=== PATIENT | female | born 1930 | race Caucasian/White ===

== ENCOUNTER 2016-04-24 14:41 | Observation (INO) | payer MEDICARE, OTHER ==
[~2016-04-24] VITALS: Ht 157.5 cm; Wt 32.7 kg
[2016-04-24] VITALS (10 sets, daily range): BP systolic 137–199; BP diastolic 69–120; PULSE 90–112; RESP 15–28; TEMP 97.5–98; O2SAT 92–99
[~2016-04-24 14:41] MED LIST: AMLO5TAB2 PO; BRIM0.2S4 EACH EYE; DORZ2SOL RIGHT EYE; LEVO50TA4 PO; MUCI600T PO; PRED20 PO; VENTAER INH; ZITH250T PO; [UNRECOGNIZED DRUG - CODE] TOPICAL
--- NOTE | 2016-04-24 14:49 | PD ---
HPI Chief Complaint: Respiratory Symptoms Time Seen by Provider: 14:49 Travel History International Travel<30 days: No Contact w/Intl Traveler<30days: No Traveled to known affect area: No History of Present Illness HPI 85-year-old female with long history of COPD presents the emergency department with increasing shortness of breath and wheezing and productive cough. Patient states she was making up appointment with Dr. Lu, but was referred to the emergency Department, as she had a spontaneous drainage from her left lower extremity. Patient states she's not sure why she started having serous drainage from the left lower leg from a small 3 mm lesion in the skin. Patient denies fever, chills, or chest pain. Patient is been using her nebulizer at home more frequently due to her shortness of breath and cough. Patient has a history of becoming hypoxic with her COPD, was recently hospitalized with pneumonia for same. She currently denies taking prednisone for her lung disease. Patient denies cardiac history or CHF. Patient has no nausea, vomiting, or other constitutional symptoms. PFSH Past Medical History Cancer: No Cardiovascular Problems: Yes High Cholesterol: Yes COPD: Yes Genitourinary: No Hypertension: Yes Immune Disorder: No Musculoskeletal: Yes Neurologic: No Psychiatric: No Reproductive: No Respiratory: Yes Thyroid Disease: Yes ?: Not Past Surgical History Body Medical Devices: VERTOGO Gynecologic Surgery: Yes (ovarian cyst removed when she was in her 20s) Tonsillectomy: Yes Other Surgery: Yes Social History Alcohol Use: No Tobacco Use: No Substance Use: No Allergies-Medications (Allergen,Severity, Reaction): Coded Allergies: Penicillin (Verified Allergy, Mild, HIVES, 03/24/16) Sulfa (Verified Allergy, Mild, HIVES, 03/24/16) Reported Meds & Prescriptions Reported Meds & Active Scripts Active Prednisone 20 Mg Tab 20 Mg PO DIRECTED 40 MG twice a day x 3 days, then 20 MG daily x 3 days, then 10 MG daily x 3 days Mucinex ER 12 HR (Guaifenesin) 600 Mg Bo 1,200 Mg PO BID Zithromax (Azithromycin) 250 Mg Tab 500 Mg PO Q24H Reported Dorzolamide Opth Drops (Dorzolamide HCl) 2% Soln 1 Drop RIGHT EYE BID Brimonidine Opth Drops (Brimonidine Tartrate) 0.2% Soln 1 Drop EACH EYE TID Desoximetasone Topical (Desoximetasone) 0.05% Oint 1 Applic TOPICAL BID Levothyroxine (Levothyroxine Sodium) 50 Mcg Tab 50 Mcg PO DAILY Amlodipine (Amlodipine Besylate) 5 Mg Tab 5 Mg PO DAILY Ventolin Hfa 18 GM Inh (Albuterol Sulfate) 90 Mcg/Act Aer 2 Puff INH Q4H PRN Review of Systems Except as stated in HPI: all other systems reviewed are Neg General / Constitutional: No: Fever, Chills Eyes: No: Visual changes HENT: No: Headaches Cardiovascular: No: Chest Pain or Discomfort Respiratory: Positive: Cough, Shortness of Breath, Wheezing, No: Sneezing, Orthopnea, Hemoptysis, Stridor, Night Sweats, Pleuritic Pain Gastrointestinal: No: Nausea, Vomiting, Diarrhea, Abdominal Pain Genitourinary: No: Dysuria Musculoskeletal: No: Pain Skin: Positive Lesions (see history present illness.), No Rash Neurologic: No: Weakness Psychiatric: No: Depression Endocrine: No: Polydipsia Hematologic/Lymphatic: No: Easy Bruising Physical Exam Narrative GENERAL: Patient is in moderate respiratory distress, but able to speak in short sentences. SKIN: Warm and dry. Normal color. Somewhat poor turgor. Patient has a spot on the left medial lower denis with small opening of the superficial layers of the skin with serous drainage from chronic lower extremity edema. There is no blood or signs of infection. HEAD: Atraumatic. Normocephalic. EYES: Pupils equal and round. No scleral icterus. No injection or drainage. ENT: No nasal bleeding or discharge. Mucous membranes pink and somewhat dry. Pharynx is normal. TMs are clear. Sinuses are clear. Airway is patent. NECK: Trachea midline. No JVD. Supple and nontender CARDIOVASCULAR: Regular rate and rhythm. RESPIRATORY: No accessory muscle use. Decreased throughout to auscultation. Generalized rhonchi with cough. Breath sounds equal bilaterally. No egophony or fremitus. GASTROINTESTINAL: Abdomen soft, non-tender, nondistended. Hepatic and splenic margins not palpable. MUSCULOSKELETAL: Extremities without clubbing, cyanosis, or bilateral 1+ pitting edema. No obvious deformities. NEUROLOGICAL: Awake and alert. No obvious cranial nerve deficits. Motor grossly within normal limits. Five out of 5 muscle strength in the arms and legs. Normal speech. PSYCHIATRIC: Appropriate mood and affect; insight and judgment normal. Data Data Last Documented VS Vital Signs Date Time Temp Pulse Resp B/P Pulse Ox O2 Delivery O2 Flow Rate FiO2 04/24/16 17:00 111 24 94 Nasal Cannula 2 04/24/16 14:59 97.5 Orders Complete Blood Count With Diff (04/24/16 15:03) Comprehensive Metabolic Panel (04/24/16 15:03) B-Type Natriuretic Peptide (04/24/16 15:03) Act Partial Throm Time (Ptt) (04/24/16 15:03) Prothrombin Time / Inr (Pt) (04/24/16 15:03) Magnesium (Mg) (04/24/16 15:03) Ckmb (Isoenzyme) Profile (04/24/16 15:03) Troponin I (04/24/16 15:03) Iv Access Insert/Monitor (04/24/16 15:03) Electrocardiogram (04/24/16 15:03) Ecg Monitoring (04/24/16 15:03) Oximetry (04/24/16 15:03) Oxygen Administration (04/24/16 15:03) Chest, Single Ap (04/24/16 15:03) Sodium Chloride 0.9% Flush (Ns Flush) (04/24/16 15:15) Methylprednisolone So Succ Inj (Solumedr (04/24/16 15:15) Albuterol-Ipratropium Neb (Duoneb Neb) (04/24/16 15:15) Arterial Blood Gas (Abg) (04/24/16 ) Azithromycin Inj (Zithromax Inj) (04/24/16 17:15) Labs Laboratory Tests Test 04/24/16 04/24/16 15:10 16:10 White Blood Count 8.2 TH/MM3 Red Blood Count 5.02 MIL/MM3 Hemoglobin 14.0 GM/DL Hematocrit 42.0 % Mean Corpuscular Volume 83.6 FL Mean Corpuscular Hemoglobin 27.9 PG Mean Corpuscular Hemoglobin 33.3 % Concent Red Cell Distribution Width 15.9 % Platelet Count 337 TH/MM3 Mean Platelet Volume 8.1 FL Neutrophils (%) (Auto) 69.5 % Lymphocytes (%) (Auto) 15.0 % Monocytes (%) (Auto) 13.2 % Eosinophils (%) (Auto) 1.7 % Basophils (%) (Auto) 0.6 % Neutrophils # (Auto) 5.7 TH/MM3 Lymphocytes # (Auto) 1.2 TH/MM3 Monocytes # (Auto) 1.1 TH/MM3 Eosinophils # (Auto) 0.1 TH/MM3 Basophils # (Auto) 0.0 TH/MM3 CBC Comment DIFF FINAL Differential Comment Prothrombin Time 10.0 SEC Prothromb Time International 0.9 RATIO Ratio Activated Partial 26.5 SEC Thromboplast Time Sodium Level 142 MEQ/L Potassium Level 3.4 MEQ/L Chloride Level 106 MEQ/L Carbon Dioxide Level 27.7 MEQ/L Anion Gap 8 MEQ/L Blood Urea Nitrogen 12 MG/DL Creatinine 0.77 MG/DL Estimat Glomerular Filtration 71 ML/MIN Rate Random Glucose 75 MG/DL Calcium Level 9.0 MG/DL Magnesium Level 1.9 MG/DL Total Bilirubin 0.3 MG/DL Aspartate Amino Transf 29 U/L (AST/SGOT) Alanine Aminotransferase 26 U/L (ALT/SGPT) Alkaline Phosphatase 97 U/L Total Creatine Kinase 69 U/L Troponin I 0.02 NG/ML B-Type Natriuretic Peptide 211 PG/ML Total Protein 6.9 GM/DL Albumin 3.3 GM/DL Blood Gas Puncture Site RT RADIAL Blood Gas Patient Temperature 98.6 Blood Gas HCO3 24 mmol/L Blood Gas Base Excess 0.1 mmol/L Blood Gas Oxygen Saturation 95 % Arterial Blood pH 7.42 Arterial Blood Partial 38 mmHg Pressure CO2 Arterial Blood Partial 120 mmHG Pressure O2 Arterial Blood Oxygen Content 17.8 Vol % Arterial Blood 1.5 % Carboxyhemoglobin Arterial Blood Methemoglobin 1.7 % Blood Gas Hemoglobin 13.2 G/DL Oxygen Delivery Device NASAL CANNULA Blood Gas Liter Flow 2 L/M [facility] Medical Decision Making Medical Screen Exam Complete: Yes Emergency Medical Condition: Yes Differential Diagnosis Shortness of breath. Chest congestion. COPD. CHF. Pedal edema. Spontaneous serous drainage from the left lower extremity. Narrative Course Patient is felt to be medically stable at time of exam. Labs ordered including CBC, CMP, proBNP, cardiac panel. Chest x-ray is ordered. Patient is given 125 mg Solu-Medrol IV as well as a DuoNeb 3 every 15 minutes. Chest x-ray shows no acute process per radiologist. CBC is unremarkable. Blood gas is within normal limits. This is reviewed with Dr. Jimenez. EKG shows sinus rhythm without significant ST-T changes. This is reviewed with Dr. Jimenez as well. Patient's CMP shows a slightly low potassium at 3.4. BUN/creatinine were normal. Troponin was 0.02. BNP was slightly elevated at 211. And albumin was 3.3. After the above Treatment the patient was ambulated, and was able to walk approximately 10 feet before becoming extremely winded, and her O2 sat dropped to the high 80s. Patient was discussed with Dr. Jimenez who felt the patient should be admitted. 1710 hrs. delusion hospitalist was called for admission. [address] patient discussed with Dr. Ramos who will admit the patient. Diagnosis Primary Impression: Hypoxia Additional Impression: COPD exacerbation Admitting Information Admitting Physician Requests: Admit Condition: Stable Cirilo Green Apr 24, 2016 14:49
[2016-04-24] MEDS ORDERED: methylPREDNISolone SOD SUCC 125 MG/2 ML VIAL IVP ONE (15:15)
[2016-04-24] MEDS ORDERED: SODIUM CHLORIDE 0.9% FLUSH 5 ML FLUSH IVF PRN (15:15)
--- NOTE | 2016-04-24 15:26 | RADRPT ---
EXAM DATE/TIME: 04/24/2016 15:17 [place] COMPARISON: CHEST SINGLE AP, March 20, 2016, 6:12. INDICATIONS : SOB MEDICAL HISTORY : Hypertension. Chronic obstructive pulmonary disease. Emphysema. SURGICAL HISTORY : None. ENCOUNTER: Initial ACUITY: 1 week PAIN SCORE: 0/10 LOCATION: chest FINDINGS: A single view of the chest demonstrates the lungs to be symmetrically aerated without evidence of mas s, infiltrate or effusion. The cardiomediastinal contours are unremarkable. Osseous structures are intact scoliosis of the thoracic spine to the right.. CONCLUSION: No acute disease. Power Serrano MD on April 24, 2016 at 15:24 Board Certified Radiologist. This report was verified electronically.
[2016-04-24] MEDS: RESP: ALBUTEROL 2.5 MG/IPRATROPIUM 0.5 MG NEB (SCH) INH (15:57)
[2016-04-24 16:04] LABS: AUTOMATED NEUTROPHIL # 5.7 TH/MM3 (1.8-7.7); BASOPHIL % 0.6 % (0.0-2.0); EOSINOPHIL # 0.1 TH/MM3 (0-0.4); EOSINOPHIL % 1.7 % (0.0-4.0); HEMO FLAGS DIFF FINAL; LYMPHOCYTE # 1.2 TH/MM3 (1.0-4.8); MEAN CELL VOLUME 83.6 FL (80.0-100.0); MEAN CORPUSCULAR HEMOGLOBIN 27.9 PG (27.0-34.0); MEAN CORPUSCULAR HGB CONC 33.3 % (32.0-36.0); MONO % 13.2 % (0.0-8.0); NEUT % 69.5 % (16.0-70.0); PLATELET COUNT 337 TH/MM3 (150-450); RED BLOOD COUNT 5.02 MIL/MM3 (4.00-5.30); RED CELL DISTRIBUTION WIDTH 15.9 % (11.6-17.2); WHITE BLOOD COUNT 8.2 TH/MM3 (4.0-11.0)
[2016-04-24 16:17] LABS: APTT (PATIENT) 26.5 SEC (24.3-30.1); INTERNATIONAL NORMALIZED RATIO 0.9 RATIO
[2016-04-24 16:25] LABS: BLOOD GAS BASE EXCESS 0.1 mmol/L (-2-2); BLOOD GAS CARBOXYHEMOGLOBIN 1.5 % (0-4); BLOOD GAS HCO3 24 mmol/L (22-26); BLOOD GAS METHEMOGLOBIN 1.7 % (0-2); BLOOD GAS O2 HGB SATURATION 95 % (90-100); BLOOD GAS OXYGEN CONTENT 17.8 Vol % (12.0-20.0); BLOOD GAS PCO2 38 mmHg (38-42); BLOOD GAS PO2 120 mmHG (61-120); BLOOD GAS TOTAL HGB 13.2 G/DL (12.0-16.0); CRITICAL VALUE NO; DRAW SITE RT RADIAL; LITER FLOW 2 L/M; OXYGEN DEVICE NASAL CANNULA; TEMP CORR TO 98.6
[2016-04-24 16:28] LABS: NUMBER OF ARTERIAL PUNCTURES 2; STAT YES; ULNAR PULSE PRESENT
[2016-04-24 16:31] LABS: ANION GAP 8 MEQ/L (5-15); AST (GOT) 29 U/L (15-37); BICARBONATE 27.7 MEQ/L (21.0-32.0); BLOOD UREA NITROGEN 12 MG/DL (7-18); CHLORIDE 106 MEQ/L (98-107); GLOMERULAR FILTRATION RATE 71 ML/MIN (>89); MAGNESIUM 1.9 MG/DL (1.5-2.5); POTASSIUM 3.4 MEQ/L (3.5-5.1); SODIUM (NA) 142 MEQ/L (136-145)
[2016-04-24 16:36] LABS: ALKALINE PHOSPHATASE 97 U/L (45-117); ALT (GPT) 26 U/L (10-53); CREATINE KINASE 69 U/L (26-192); TOTAL BILIRUBIN ADULT 0.3 MG/DL (0.2-1.0)
--- NOTE | 2016-04-24 17:11 | PD ---
Data Data Last Documented VS Vital Signs Date Time Temp Pulse Resp B/P Pulse Ox O2 Delivery O2 Flow Rate FiO2 04/24/16 15:10 98 Nasal Cannula 2 04/24/16 14:59 97.5 112 28 170/120 Orders Complete Blood Count With Diff (04/24/16 15:03) Comprehensive Metabolic Panel (04/24/16 15:03) B-Type Natriuretic Peptide (04/24/16 15:03) Act Partial Throm Time (Ptt) (04/24/16 15:03) Prothrombin Time / Inr (Pt) (04/24/16 15:03) Magnesium (Mg) (04/24/16 15:03) Ckmb (Isoenzyme) Profile (04/24/16 15:03) Troponin I (04/24/16 15:03) Iv Access Insert/Monitor (04/24/16 15:03) Electrocardiogram (04/24/16 15:03) Ecg Monitoring (04/24/16 15:03) Oximetry (04/24/16 15:03) Oxygen Administration (04/24/16 15:03) Chest, Single Ap (04/24/16 15:03) Sodium Chloride 0.9% Flush (Ns Flush) (04/24/16 15:15) Methylprednisolone So Succ Inj (Solumedr (04/24/16 15:15) Albuterol-Ipratropium Neb (Duoneb Neb) (04/24/16 15:15) Arterial Blood Gas (Abg) (04/24/16 ) Labs Laboratory Tests Test 04/24/16 04/24/16 15:10 16:10 White Blood Count 8.2 TH/MM3 Red Blood Count 5.02 MIL/MM3 Hemoglobin 14.0 GM/DL Hematocrit 42.0 % Mean Corpuscular Volume 83.6 FL Mean Corpuscular Hemoglobin 27.9 PG Mean Corpuscular Hemoglobin 33.3 % Concent Red Cell Distribution Width 15.9 % Platelet Count 337 TH/MM3 Mean Platelet Volume 8.1 FL Neutrophils (%) (Auto) 69.5 % Lymphocytes (%) (Auto) 15.0 % Monocytes (%) (Auto) 13.2 % Eosinophils (%) (Auto) 1.7 % Basophils (%) (Auto) 0.6 % Neutrophils # (Auto) 5.7 TH/MM3 Lymphocytes # (Auto) 1.2 TH/MM3 Monocytes # (Auto) 1.1 TH/MM3 Eosinophils # (Auto) 0.1 TH/MM3 Basophils # (Auto) 0.0 TH/MM3 CBC Comment DIFF FINAL Differential Comment Prothrombin Time 10.0 SEC Prothromb Time International 0.9 RATIO Ratio Activated Partial 26.5 SEC Thromboplast Time Sodium Level 142 MEQ/L Potassium Level 3.4 MEQ/L Chloride Level 106 MEQ/L Carbon Dioxide Level 27.7 MEQ/L Anion Gap 8 MEQ/L Blood Urea Nitrogen 12 MG/DL Creatinine 0.77 MG/DL Estimat Glomerular Filtration 71 ML/MIN Rate Random Glucose 75 MG/DL Calcium Level 9.0 MG/DL Magnesium Level 1.9 MG/DL Total Bilirubin 0.3 MG/DL Aspartate Amino Transf 29 U/L (AST/SGOT) Alanine Aminotransferase 26 U/L (ALT/SGPT) Alkaline Phosphatase 97 U/L Total Creatine Kinase 69 U/L Troponin I 0.02 NG/ML B-Type Natriuretic Peptide 211 PG/ML Total Protein 6.9 GM/DL Albumin 3.3 GM/DL Blood Gas Puncture Site RT RADIAL Blood Gas Patient Temperature 98.6 Blood Gas HCO3 24 mmol/L Blood Gas Base Excess 0.1 mmol/L Blood Gas Oxygen Saturation 95 % Arterial Blood pH 7.42 Arterial Blood Partial 38 mmHg Pressure CO2 Arterial Blood Partial 120 mmHG Pressure O2 Arterial Blood Oxygen Content 17.8 Vol % Arterial Blood 1.5 % Carboxyhemoglobin Arterial Blood Methemoglobin 1.7 % Blood Gas Hemoglobin 13.2 G/DL Oxygen Delivery Device NASAL CANNULA Blood Gas Liter Flow 2 L/M MDM Supervised Visit with ELIZA: Yes Narrative Course I, Dr. Del Rosario, have reviewed the advance practice practioner's documentation and am in agreement, met with the patient face to face, made the diagnosis, and the medical decision making was done by me. *My assessment and Findings: 85-year-old female with history of COPD here with increasing shortness of breath, dyspnea on exertion, wheezing and productive cough after recent hospital discharge. 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 She denies any fevers or chills. Diffuse wheezing, prolonged expiratory phase with poor air movement on exam. Differential includes COPD exacerbation, chronic hypercapnia/hypoxic respiratory failure, pneumonia. On exam. He improved after nebs, chest x-ray shows chronic changes and labs are unremarkable. Patient however he saturates into the 88-89% upon ambulation requiring admission for oxygen and further management. Diagnosis Primary Impression: Hypoxia Additional Impression: COPD exacerbation Admitting Information Admitting Physician Requests: Admit Condition: Stable Maryuri Del Rosario MD Apr 24, 2016 17:11
[2016-04-24] MEDS ORDERED: AZITHROMYCIN INJ 500 MG in SODIUM CHLOR 0.9% 250 ML INJ 250 ML IV ONE (17:15)
[2016-04-24] MEDS ORDERED: ENOXAPARIN SODIUM 40 MG/0.4 ML SYRINGE SQ SCH (20:00)
[2016-04-24] MEDS: guaiFENesin E.R. 600 MG TAB PO SCH (22:04)
[2016-04-24] MEDS: DORZOLAMIDE 2% OPTH SOLN 200 DROP/10 ML BTLO RIGHT EYE SCH (22:04)
[2016-04-24] MEDS: methylPREDNISolone SOD SUCC 125 MG/2 ML VIAL IV PUSH SCH (22:05)
[2016-04-24] MEDS: RESP: ALBUTEROL 2.5 MG/IPRATROPIUM 0.5 MG NEB (SCH) NEB (23:54)
[2016-04-25] VITALS (10 sets, daily range): BP systolic 106–169; BP diastolic 53–78; PULSE 60–99; RESP 18–20; TEMP 97–98.4; O2SAT 93–98
[2016-04-25] MEDS: LEVOTHYROXINE SODIUM 50 MCG TAB PO SCH (04:59)
[2016-04-25] MEDS: methylPREDNISolone SOD SUCC 125 MG/2 ML VIAL IV PUSH SCH ×2 (04:59→22:01)
[2016-04-25] MEDS: RESP: ALBUTEROL 2.5 MG/IPRATROPIUM 0.5 MG NEB (SCH) NEB ×4 (07:53→20:36)
[2016-04-25] MEDS: FAMOTIDINE 20 MG TAB PO SCH (08:45)
[2016-04-25] MEDS: guaiFENesin E.R. 600 MG TAB PO SCH ×2 (08:45→21:00)
[2016-04-25] MEDS: amLODIPine BESYLATE 5 MG TAB PO SCH (08:45)
[2016-04-25] MEDS: DORZOLAMIDE 2% OPTH SOLN 200 DROP/10 ML BTLO RIGHT EYE SCH ×2 (08:46→21:00)
[2016-04-25] MEDS: BRIMONIDINE TARTRATE 0.2% OPHT SOLN 5 ML BTL EACH EYE SCH ×3 (09:18→17:10)
--- NOTE | 2016-04-25 12:28 | EKG ---
Date Performed: 04/24/2016 Time Performed: 15:31:37 PTAGE: 85 years EKG: Sinus rhythm POSSIBLE RIGHT VENTRICULAR CONDUCTION DELAY BORDERLINE ECG PREVIOUS TRACING : 03/24/2016 10.14 Compared to prior tracing no significant change DOCTOR: Chapo Bryant Interpretating Date/Time 04/25/2016 12:26:35
--- NOTE | 2016-04-25 13:39 | HHI.HP ---
HPI Service [facility] Primary Care Physician Misa Cowart MD Admission Diagnosis COPD/Hypoxia Diagnoses: Chief Complaint: SOB (Alina Viera) Travel History International Travel<30 Days: No Contact w/Intl Traveler <30 Da: No Traveled to Known Affected Are: No (Alina Viera) History of Present Illness This is an 85-year-old elderly female with significant past medical history of COPD not oxygen dependent, hypertension, hyperlipidemia, hypothyroid. Recently admitted in Feb with COPD exacerbation. Patient presented to the emergency room complaining of worsening shortness of breath, wheezing, coughing that is sometimes productive of garcia sputum. Denies any fever, no chills. No chest pain , no palpitations. Patient was apparently following up with Dr. while there was referred to the emergency room she was noted to be draining from a small skin tear from the left lower extremity. Patient believes that she bumped her leg and associated acquire the small lesion. According to the patient, after she was discharge in February she had been doing fairly well. She had been increasing her intake she had had some weight loss prior to that. In the last couple days, she noted increased shortness of breath with minimal activity. She felt like she could not catch her breath. Indicates that she needs oxygen and knows that she needs to qualify. After her last admission, her walk test was stable and she did not require any oxygen. She is on chronic steroids. Home Mortgage Disclosure Act Specialist is Dr. Lu. Patient indicates that she doesn't like coming to the hospital and all she needs his oxygen. Patient was evaluated in the emergency room, laboratory workup completed was essentially unremarkable. Chest x-ray did not show any significant changes. ABG was within normal limits. BMP was remarkable for mild hypokalemia, potassium was 3.4. Troponin was negative. BNP was slightly elevated to 211. Patient was given IV steroids as well as duo nebs 3. After the treatment, patient was ambulated and she was able to walk 10 feet before becoming extremely short of breath and oxygen dropped to 88. Patient is resting comfortably, she is very pleasant. States that she is very independent and all she needs is her oxygen so she can go about her life. Patient is admitted for further evaluation and treatment. (Alina Viera) Review of Systems Constitutional: COMPLAINS OF: Weight loss, DENIES: Diaphoretic episodes, Fatigue, Fever, Weight gain, Chills, Dizziness, Change in appetite, Night Sweats Endocrine: DENIES: Abnorml menstrual pattern, Heat/cold intolerance, Polydipsia , Polyuria, Polyphagia Eyes: DENIES: Blurred vision, Diplopia, Eye inflammation, Eye pain, Vision loss , Photosensitivity, Double Vision Ears, nose, mouth, throat: DENIES: Tinnitus, Hearing loss, Vertigo, Nasal discharge, Oral lesions, Throat pain, Hoarseness, Ear Pain, Running Nose, Epistaxis, Sinus Pain, Toothache, Odynophagia Respiratory: COMPLAINS OF: Cough, Wheezing, Sputum production, Shortness of breath, DENIES: Apneas, Snoring, Hemoptysis Cardiovascular: COMPLAINS OF: Dyspnea on Exertion, DENIES: Chest pain, Palpitations, Syncope, PND, Lower Extremity Edema, Orthopnea, Claudication Gastrointestinal: DENIES: Abdominal pain, Black stools, Bloody stools, Constipation, Diarrhea, Nausea, Vomiting, Difficulty Swallowing, Anorexia Genitourinary: DENIES: Abnormal vaginal bleeding, Dysmenorrhea, Dyspareunia, Sexual dysfunction, Urinary frequency, Urinary incontinence, Urgency, Hematuria , Dysuria, Nocturia, Vaginal discharge Musculoskeletal: DENIES: Joint pain, Muscle aches, Stiffness, Joint Swelling, Back pain, Neck pain Integumentary: DENIES: Abnormal pigmentation, Pruritus, Rash, Nail changes, Breast masses, Breast skin changes, Nipple discharge Hematologic/lymphatic: COMPLAINS OF: Bruising, DENIES: Lymphadenopathy Immunologic/allergic: DENIES: Eczema, Urticaria Neurologic: DENIES: Abnormal gait, Headache, Localized weakness, Paresthesias, Seizures, Speech Problems, Tremor, Poor Balance Psychiatric: DENIES: Anxiety, Confusion, Mood changes, Depression, Hallucinations, Agitation, Suicidal Ideation, Homicidal Ideation, Delusions ( Alina Viera) Past Family Social History Past Medical History COPD, no oxygen at home Recent admission in February for COPD exacerbation HTN Osteoporosis Hyperlipidemia Vertigo Hypothyroid Past Surgical History Tonsillectomy Reported Medications Reported Meds & Active Scripts Active Prednisone 20 Mg Tab 20 Mg PO DIRECTED 40 MG twice a day x 3 days, then 20 MG daily x 3 days, then 10 MG daily x 3 days Mucinex ER 12 HR (Guaifenesin) 600 Mg Bo 1,200 Mg PO BID Zithromax (Azithromycin) 250 Mg Tab 500 Mg PO Q24H Reported Dorzolamide Opth Drops (Dorzolamide HCl) 2% Soln 1 Drop RIGHT EYE BID Brimonidine Opth Drops (Brimonidine Tartrate) 0.2% Soln 1 Drop EACH EYE TID Desoximetasone Topical (Desoximetasone) 0.05% Oint 1 Applic TOPICAL BID Levothyroxine (Levothyroxine Sodium) 50 Mcg Tab 50 Mcg PO DAILY Amlodipine (Amlodipine Besylate) 5 Mg Tab 5 Mg PO DAILY Ventolin Hfa 18 GM Inh (Albuterol Sulfate) 90 Mcg/Act Aer 2 Puff INH Q4H PRN ( Alina Viera) Allergies: Coded Allergies: Levaquin (Verified Allergy, Intermediate, skin rash , 04/25/16) skin rash Penicillin (Verified Allergy, Mild, HIVES, 03/24/16) Sulfa (Verified Allergy, Mild, HIVES, 03/24/16) Active Ordered Medications Inpatient Medications Albuterol/ Ipratropium (Duoneb Neb) 1 ampule Q4HR WHILE AWAKE NEB NEB Last administered on 04/25/16 11:53; Start 04/24/16 at 20:00 Albuterol/ Ipratropium 1 ampule 1 ampule Q15M INH Last administered on 15:57; Start 04/24/16 at 15:15; Stop 04/24/16 at 15:46; Status DC Amlodipine Besylate (Norvasc) 5 mg DAILY PO Last administered on 04/25/16 08: 45; Start 04/25/16 at 09:00 Azithromycin (Zithromax) 500 mg Q24H PO ; Start 04/25/16 at 17:00 Azithromycin/ Sodium Chloride (Zithromax Inj/ NS 250 ml Inj) 250 ml @ 250 mls/ hr ONCE ONCE IV Last administered on 04/24/16 17:38; Start 04/24/16 at 17:15 ; Stop 04/24/16 at 18:14; Status DC Brimonidine Tartrate (Alphagan 0.2% Opth Soln) 1 drop TID EACH EYE Last administered on 04/25/16 09:18; Start 04/25/16 at 09:00 Dorzolamide HCl (Trusopt 2% Opth Soln) 1 drop BID RIGHT EYE Last administered on 04/25/16 08:46; Start 04/24/16 at 21:00 Enoxaparin Sodium (Lovenox Inj) 40 mg Q24H SQ Last administered on 04/24/16 22 :05; Start 04/24/16 at 20:00 Famotidine (Pepcid) 20 mg DAILY PO Last administered on 04/25/16 08:45; Start 04/25/16 at 09:00 Guaifenesin (Mucinex Er) 1,200 mg BID PO Last administered on 04/25/16 08:45; Start 04/24/16 at 21:00 IV Flush (NS Flush) 2 ml UNSCH PRN IVF FLUSH AFTER USING IV ACCESS Last administered on 04/24/16 15:42; Start 04/24/16 at 15:15 Levothyroxine Sodium (Synthroid) 50 mcg DAILY@06 PO Last administered on 04:59; Start 04/25/16 at 06:00 Methylprednisolone Sodium Succinate (SoluMEDROL INJ) 60 mg Q8HR IV PUSH Last administered on 04/25/16 04:59; Start 04/24/16 at 22:00 Family History Mother from PNA doesn't know about father no siblings Social History Not , lives in low income housing building, independent. Has good neighbors. Has 2 children, son and daughter. Smoked 2 ppd x 17 years, quit 50 years ago. No ETOH, no substance abuse (Alina Viera) Physical Exam Vital Signs Vital Signs Date Time Temp Pulse Resp B/P Pulse Ox O2 Delivery O2 Flow Rate FiO2 04/25/16 11:54 97.5 80 20 106/53 94 04/25/16 10:00 93 04/25/16 08:54 97 Nasal Cannula 2.00 04/25/16 07:53 96 Nasal Cannula 3.00 04/25/16 07:48 97.9 89 18 169/78 97 04/25/16 04:00 98.4 60 18 161/74 93 04/25/16 00:00 98.0 90 18 158/75 96 04/25/16 00:00 98 Nasal Cannula 3.00 04/24/16 23:58 98 Nasal Cannula 3.00 04/24/16 21:00 97.7 105 18 165/82 94 04/24/16 20:30 93 04/24/16 20:00 94 Nasal Cannula 2.00 04/24/16 18:35 96 28 153/69 92 Nasal Cannula 2 04/24/16 17:00 111 24 94 Nasal Cannula 2 04/24/16 16:00 94 15 186/84 99 Nasal Cannula 2 04/24/16 15:30 110 25 199/100 96 Nasal Cannula 2 04/24/16 15:10 98 Nasal Cannula 2 04/24/16 15:03 94 Room Air 04/24/16 14:59 97.5 112 28 170/120 94 Room Air 04/24/16 14:45 97.6 92 22 137/95 92 Physical Exam GENERAL: This is a thin built, elderly female. SKIN: Skin fragile, bruises easily. HEAD: Atraumatic. Normocephalic. No temporal or scalp tenderness. EYES: Pupils equal round and reactive. Extraocular motions intact. No scleral icterus. No injection or drainage. ENT: Nose without bleeding, purulent drainage or septal hematoma. Throat without erythema, tonsillar hypertrophy or exudate. Uvula midline. Airway patent. NECK: Trachea midline. No JVD or lymphadenopathy. Supple, nontender, no meningeal signs. CARDIOVASCULAR: Regular rate and rhythm without murmurs, gallops, or rubs. RESPIRATORY: Diminished, faint expiratory wheezing, cough nonproductive. GASTROINTESTINAL: Abdomen soft, non-tender, nondistended. No hepato-splenomegaly , or palpable masses. No guarding. MUSCULOSKELETAL: No joint abnormality noted, active range of motion. Bilateral lower extremities with trace pretibial edema, left greater than right. Pedal pulses 2+ bilaterally. Skin tear noted to left lower extremity, oozing clear drainage. NEUROLOGICAL: Awake and alert. Cranial nerves II through XII intact. Motor and sensory grossly within normal limits. Five out of 5 muscle strength in all muscle groups. Normal speech. Laboratory Laboratory Tests Test 04/24/16 04/24/16 15:10 16:10 White Blood Count 8.2 Red Blood Count 5.02 Hemoglobin 14.0 Hematocrit 42.0 Mean Corpuscular Volume 83.6 Mean Corpuscular Hemoglobin 27.9 Mean Corpuscular Hemoglobin 33.3 Concent Red Cell Distribution Width 15.9 Platelet Count 337 Mean Platelet Volume 8.1 Neutrophils (%) (Auto) 69.5 Lymphocytes (%) (Auto) 15.0 Monocytes (%) (Auto) 13.2 Eosinophils (%) (Auto) 1.7 Basophils (%) (Auto) 0.6 Neutrophils # (Auto) 5.7 Lymphocytes # (Auto) 1.2 Monocytes # (Auto) 1.1 Eosinophils # (Auto) 0.1 Basophils # (Auto) 0.0 CBC Comment DIFF FINAL Differential Comment Prothrombin Time 10.0 Prothromb Time International 0.9 Ratio Activated Partial 26.5 Thromboplast Time Sodium Level 142 Potassium Level 3.4 Chloride Level 106 Carbon Dioxide Level 27.7 Anion Gap 8 Blood Urea Nitrogen 12 Creatinine 0.77 Estimat Glomerular Filtration 71 Rate Random Glucose 75 Calcium Level 9.0 Magnesium Level 1.9 Total Bilirubin 0.3 Aspartate Amino Transf 29 (AST/SGOT) Alanine Aminotransferase 26 (ALT/SGPT) Alkaline Phosphatase 97 Total Creatine Kinase 69 Troponin I 0.02 B-Type Natriuretic Peptide 211 Total Protein 6.9 Albumin 3.3 Blood Gas Puncture Site RT RADIAL Blood Gas Patient Temperature 98.6 Blood Gas HCO3 24 Blood Gas Base Excess 0.1 Blood Gas Oxygen Saturation 95 Arterial Blood pH 7.42 Arterial Blood Partial 38 Pressure CO2 Arterial Blood Partial 120 Pressure O2 Arterial Blood Oxygen Content 17.8 Arterial Blood 1.5 Carboxyhemoglobin Arterial Blood Methemoglobin 1.7 Blood Gas Hemoglobin 13.2 Oxygen Delivery Device NASAL CANNULA Blood Gas Liter Flow 2 (Alina Viera) Result Diagram: 04/24/16 1510 04/24/16 1510 Imaging Last Impressions Chest X-Ray 04/24/16 1503 Signed Impressions: Service Date/Time: Sunday, April 24, 2016 15:17 - CONCLUSION: No acute disease. Power Serrano MD (Alina Viera) Assessment and Plan Problem List: (1) COPD exacerbation (2) Hypoxia (3) Emphysema, unspecified (4) Hypertension, uncontrolled (5) Hypothyroid (6) Hypokalemia Assessment and Plan Admit to Dr. Griffith 85-year-old elderly female with history of COPD, presented to emergency room with complaints of progressive shortness of breath, worst with activity, cough with sputum, wheezing. Admitted with COPD exacerbation. -Continue Zithromax -Continue with scheduled DuoNeb's and when necessary -Continue Solu-Medrol 40 mg IV BID -Oxygen to keep sats greater than 90 -Continue [id number] mg by mouth twice a day -Consult pulmonology Patient will likely need oxygen before discharge, we'll order walk test Hypertension, stable -Continue home meds Hypothyroid -resume home meds Hypokalemia We will replace with oral supplement Lovenox for DVT prophylaxis Protonix for GI prophylaxis Plan of care has been discussed with the patient, attending and registered nurse. Further management of the patient will be dependent on the hospital course Patient may need home oxygen upon discharge, case management will be consulted to assist with discharge planning in 1-2 days. Patient will likely benefit from home hospice, indicates that she does not like coming to the hospital frequently and she will rather manage at home as she understands that she has advanced lung disease. This patient was seen by myself and Dr. Griffith, this H&P is written on his behalf (Alina Viera) Assessment and Plan seen, examined by myself, Dr Griffith, today Discussed with patient, significant resting dyspnea Continue steroids, bronchodilators Arrange home oxygen Also has swelling in the right lower extremity, check ultrasound Discussed with mid level provider The exam, history, and the medical decision-making described in the above note were completed with the assistance of the mid-level provider. I reviewed the findings presented. I attest that I had a [id number] encounter with the patient on the same day, and personally performed and documented my assessment and findings in the medical record. (Tommy Griffith MD) Problem Qualifiers (1) Hypothyroid: Qualified Code: E03.9 - Hypothyroidism, unspecified type Alina Viera Apr 25, 2016 13:39 Tommy Griffith MD Apr 25, 2016 19:00
--- NOTE | 2016-04-25 13:40 | HHI.FF ---
Face to Face Verification Diagnosis: (1) COPD exacerbation (2) Emphysema, unspecified (3) Hypertension, uncontrolled Home Health Nursing Order: Medical education Oxygen administration education Gre Tutor Order: To Evaluate: Living conditions/environment, Support services Order: To Provide: Long range planning, Community services I have seen patient Jayla Almanzar on 04/25/16. My clinical findings support the need for the requested home health care services because: Patient has SOB Deconditioned w/ increased weakness I certify that my clinical findings support that this patient is homebound because: Hx COPD- exertion dyspnea/weakness Alina Viera [facility] Apr 25, 2016 13:39
[2016-04-25] MEDS: AZITHROMYCIN 250 MG TAB PO SCH (17:10)
[2016-04-25] MEDS: POTASSIUM CL 40 MEQ/30 ML LIQ UDC PO ONE ×2 (17:45→18:47)
[2016-04-25] MEDS ORDERED: ENOXAPARIN SODIUM 40 MG/0.4 ML SYRINGE SQ SCH (20:00)
[2016-04-25] MEDS ORDERED: POTASSIUM CHLOR 20 MEQ PREMIX 100 ML IV ONE (22:00)
--- NOTE | 2016-04-25 23:25 | RADRPT ---
EXAM DATE/TIME: 04/25/2016 22:51 [place] COMPARISON: No previous studies available for comparison. INDICATIONS : Right leg swelling. MEDICAL HISTORY : Hypercholesterolemia. Chronic obstructive pulmonary disease. Congestive heart failure. Thyroid dis ease. Hypertension. Emphyssema. Osteoporosis. SURGICAL HISTORY : Tonsillectomy. Ovarian cyst removal. ENCOUNTER: Initial ACUITY: 1 day PAIN SCORE: 0/10 LOCATION: Right leg. TECHNIQUE: Venous ultrasound of the leg was performed from the inguinal ligament to the proximal calf. Real-waqas e, color Doppler and spectral tracing, compression and augmentation techniques were used. FINDINGS: There is normal compressibility of the deep venous system from the inguinal region to the proximal ca lf. No echogenic clot is seen in the lumen of the common femoral, femoral, popliteal, and posterior tibial veins. There is a normal response of the venous system to proximal and distal augmentation an d respiration. CONCLUSION: Normal examination. Austin Ramirez MD on April 25, 2016 at 23:24 Board Certified Radiologist. This report was verified electronically.
[2016-04-26] VITALS (8 sets, daily range): BP systolic 107–159; BP diastolic 52–83; PULSE 86–116; RESP 18–21; TEMP 97.6–98.4; O2SAT 93–98
[2016-04-26] MEDS: LEVOTHYROXINE SODIUM 50 MCG TAB PO SCH (05:45)
[2016-04-26] MEDS: RESP: ALBUTEROL 2.5 MG/IPRATROPIUM 0.5 MG NEB (SCH) NEB ×4 (07:41→20:26)
[2016-04-26] MEDS: guaiFENesin E.R. 600 MG TAB PO SCH ×2 (09:09→21:00)
[2016-04-26] MEDS: BRIMONIDINE TARTRATE 0.2% OPHT SOLN 5 ML BTL EACH EYE SCH ×3 (09:09→17:15)
[2016-04-26] MEDS: methylPREDNISolone SOD SUCC 125 MG/2 ML VIAL IV PUSH SCH (09:10)
[2016-04-26] MEDS: amLODIPine BESYLATE 5 MG TAB PO SCH (09:10)
[2016-04-26] MEDS: FAMOTIDINE 20 MG TAB PO SCH (09:10)
[2016-04-26] MEDS: DORZOLAMIDE 2% OPTH SOLN 200 DROP/10 ML BTLO RIGHT EYE SCH ×2 (09:11→21:27)
--- NOTE | 2016-04-26 13:35 | HHI.PR ---
Subjective Remarks sitting up in chair on RA 96% "I need oxygen" overnight desated to mid 80s when off oxygen walk test done, sats 93% still with cough, and wheezing, but not as SOB "I just don't want to keep coming back here, I want to stay home and take care of things" Understands she has a terminal condition very pleasant, sharp, wants to maintain independence and remain home as much as possible--agreeable with hospice if they have a program Objective Objective Results - Vital Signs Date Time Temp Pulse Resp B/P Pulse Ox O2 Delivery O2 Flow Rate FiO2 04/26/16 12:45 116 04/26/16 12:00 97.8 97 21 150/75 96 04/26/16 10:00 Room Air 04/26/16 08:00 98.0 86 21 145/68 93 04/26/16 05:00 98 Nasal Cannula 2.00 04/26/16 04:00 98.4 98 18 159/74 98 04/26/16 00:00 98.3 93 18 107/52 93 04/25/16 21:00 77 04/25/16 21:00 93 Room Air 21 04/25/16 20:36 96 04/25/16 20:00 97.8 87 18 120/58 93 04/25/16 16:00 97.0 99 20 125/72 98 I/O 04/25/16 04/25/16 04/25/16 04/26/16 04/26/16 04/26/16 07:00 15:00 23:00 07:00 15:00 23:00 Intake Total 240 ml 1440 ml 240 ml 340 ml Output Total 1600 ml Balance 240 ml -160 ml 240 ml 340 ml Intake Oral 240 ml 1440 ml 240 ml 340 ml IV Total 0 ml Output Urine Total 1600 ml # Voids 2 4 2 1 # Bowel Movements 2 1 0 1 Result Diagram: 04/24/16 1510 04/24/16 1510 Imaging Last Impressions Chest X-Ray 04/24/16 1503 Signed Impressions: Service Date/Time: Sunday, April 24, 2016 15:17 - CONCLUSION: No acute disease. Power Serrano MD ROS Pulmonary: Cough, SOB, Wheezing Physical Exam Physical Exam GENERAL: This is a thin built, elderly female. SKIN: Skin fragile, bruises easily. HEAD: Atraumatic. Normocephalic. No temporal or scalp tenderness. EYES: Pupils equal round and reactive. Extraocular motions intact. No scleral icterus. No injection or drainage. ENT: Nose without bleeding, purulent drainage or septal hematoma. Throat without erythema, tonsillar hypertrophy or exudate. Uvula midline. Airway patent. NECK: Trachea midline. No JVD or lymphadenopathy. Supple, nontender, no meningeal signs. CARDIOVASCULAR: Regular rate and rhythm without murmurs, gallops, or rubs. RESPIRATORY: Diminished, faint expiratory wheezing, cough nonproductive. GASTROINTESTINAL: Abdomen soft, non-tender, nondistended. No hepato-splenomegaly , or palpable masses. No guarding. MUSCULOSKELETAL: No joint abnormality noted, active range of motion. Bilateral lower extremities with trace pretibial edema, left greater than right. Pedal pulses 2+ bilaterally. Skin tear noted to left lower extremity, oozing clear drainage. NEUROLOGICAL: Awake and alert. Cranial nerves II through XII intact. Motor and sensory grossly within normal limits. Five out of 5 muscle strength in all muscle groups. Normal speech. Urinary Catheter: No Vascular Central Line Catheter: No A/P Diagnosis: (1) COPD exacerbation (2) Hypoxia (3) Emphysema, unspecified (4) Hypertension, uncontrolled (5) Hypothyroid (6) Hypokalemia Assessment and Plan 85-year-old elderly female with history of COPD, presented to emergency room with complaints of progressive shortness of breath, worst with activity, cough with sputum, wheezing. Admitted with COPD exacerbation. -Continue Zithromax -Continue with scheduled DuoNeb's and when necessary -DC IV steroids, change to PO steroids -Oxygen to keep sats greater than 90 -Continue Mucinex 1200 mg by mouth twice a day -Consult pulmonology, pending Walk test results noted, desated overnight, will have them re-evaluate again. -D/W pt. likely to continue having COPD exacerbations, discussed possibility of hospice helping and she is agreeable to talk to them. Wants to prevent readmission. -May benefit from adding LABA to her current treatment. Pulm consult pending Hypertension, stable -Continue home meds Hypothyroid -continue home meds Hypokalemia-resolved monitor Lovenox for DVT prophylaxis Protonix for GI prophylaxis CM for dc planning, hospice consult Walk test to be repeated today, she desats overnight Hopefully discharge tomorrow if stable. D/W RN D/W Dr. Griffith D/W pt. D/W CM, will find if hospice can see today and have a program that can help pt. This patient was seen by myself and Dr. Griffith, this H&P is written on his behalf ( Problem Qualifiers (1) Hypothyroid: Qualified Code: E03.9 - Hypothyroidism, unspecified type Alina Virea Apr 26, 2016 13:35
--- NOTE | 2016-04-26 13:36 | HHI.FF ---
Face to Face Verification Diagnosis: (1) COPD exacerbation Home Health Nursing Order: Medical education Oxygen administration education Nursing assessment with vital signs Transition Coach Order: To Evaluate: Living conditions/environment, Support services Order: To Provide: Long range planning, Community services I have seen patient Jayla Almanzar on 04/26/16. My clinical findings support the need for the requested home health care services because: Patient has SOB I certify that my clinical findings support that this patient is homebound because: Hx COPD- exertion dyspnea/weakness Alina Viera Apr 26, 2016 13:36
--- NOTE | 2016-04-26 16:51 | HHI.PR ---
Subjective Remarks Feels OK . Ready to go to hospice. On O2 at 2 L. Coughs up white sputum. Objective Vital Signs Date Time Temp Pulse Resp B/P Pulse Ox O2 Delivery O2 Flow Rate FiO2 04/26/16 12:45 116 04/26/16 12:00 97.8 97 21 150/75 96 04/26/16 10:00 Room Air 04/26/16 08:00 98.0 86 21 145/68 93 04/26/16 05:00 98 Nasal Cannula 2.00 04/26/16 04:00 98.4 98 18 159/74 98 04/26/16 00:00 98.3 93 18 107/52 93 04/25/16 21:00 77 04/25/16 21:00 93 Room Air 21 04/25/16 20:36 96 04/25/16 20:00 97.8 87 18 120/58 93 I/O 04/25/16 04/25/16 04/25/16 04/26/16 04/26/16 04/26/16 07:00 15:00 23:00 07:00 15:00 23:00 Intake Total 240 ml 1440 ml 240 ml 340 ml Output Total 1600 ml Balance 240 ml -160 ml 240 ml 340 ml Intake Oral 240 ml 1440 ml 240 ml 340 ml IV Total 0 ml Output Urine Total 1600 ml # Voids 2 4 2 1 # Bowel Movements 2 1 0 1 Result Diagram: 04/24/16 1510 04/24/16 1510 Objective Remarks GENERAL: This is a thin built, elderly female. SKIN: Skin fragile, bruises easily. HEAD: Atraumatic. Normocephalic. No temporal or scalp tenderness. EYES: Pupils equal round and reactive. Extraocular motions intact. No scleral icterus. No injection or drainage. ENT: Nose without bleeding, purulent drainage or septal hematoma. Throat without erythema, tonsillar hypertrophy or exudate. Uvula midline. Airway patent. NECK: Trachea midline. No JVD or lymphadenopathy. Supple, nontender. CARDIOVASCULAR: Regular rate and rhythm without murmurs, gallops, or rubs. RESPIRATORY: Diminished,breath sounds. expiratory wheezing,noted GASTROINTESTINAL: Abdomen soft, non-tender, nondistended. No hepato-splenomegaly , or palpable masses. . MUSCULOSKELETAL: No joint abnormality noted, active range of motion. Bilateral lower extremities with trace pretibial edema, left greater than right. Pedal pulses 2+ bilaterally. Skin tear noted to left lower extremity. NEUROLOGICAL: Awake and alert.. Motor and sensory grossly within normal limits. Five out of 5 muscle strength in all muscle groups. Normal speech. Assessment and Plan Assessment and Plan t Assessment and Plan Assessment and Plan Problem List: (1) COPD exacerbation (2) Hypoxia (3) Emphysema, unspecified (4) Hypertension, uncontrolled (5) Hypothyroid (6) Hypokalemia Plan : 1.Continue O2 at 2L and Arrange home O2. 2. Cont antibiotics and switch to PO. 3. Nebs qid , duoneb. 4. Taper solumedrol to Prednisone 20 mg bid. 5. Hospice care to follow. 6. Will get PFT in am. Rosaura Rosado MD Apr 26, 2016 16:51
[2016-04-26] MEDS: AZITHROMYCIN 250 MG TAB PO SCH (17:12)
[2016-04-26] MEDS: predniSONE 20 MG TAB PO SCH (21:27)
[2016-04-26] MEDS ORDERED: ENOXAPARIN SODIUM 30 MG/0.3 ML SYRINGE SQ SCH (22:00)
[2016-04-27] VITALS: BP 144/68; PULSE 87; RESP 18; TEMP 97.5; O2SAT 99
[2016-04-27 04:00] VITALS: BP 155/75; PULSE 83; RESP 18; TEMP 97.7; O2SAT 99
[2016-04-27] MEDS: LEVOTHYROXINE SODIUM 50 MCG TAB PO SCH (06:16)
[2016-04-27 08:00] VITALS: BP 146/75; PULSE 82; RESP 20; TEMP 97.9; O2SAT 96
[2016-04-27] MEDS: RESP: ALBUTEROL 2.5 MG/IPRATROPIUM 0.5 MG NEB (SCH) NEB ×2 (08:08→11:54)
[2016-04-27 08:09] VITALS: O2SAT 96
[2016-04-27] MEDS: BRIMONIDINE TARTRATE 0.2% OPHT SOLN 5 ML BTL EACH EYE SCH (08:26)
[2016-04-27] MEDS: DORZOLAMIDE 2% OPTH SOLN 200 DROP/10 ML BTLO RIGHT EYE SCH (08:26)
[2016-04-27] MEDS: amLODIPine BESYLATE 5 MG TAB PO SCH (08:27)
[2016-04-27] MEDS: FAMOTIDINE 20 MG TAB PO SCH (08:27)
[2016-04-27] MEDS: predniSONE 20 MG TAB PO SCH (08:27)
[2016-04-27] MEDS: guaiFENesin E.R. 600 MG TAB PO SCH (08:31)
[2016-04-27] MEDS ORDERED: PRED20 PO (11:40)
--- NOTE | 2016-04-27 11:41 | HHI.DCPOC ---
Discharge Care Plan Diagnosis: (1) COPD exacerbation Your Health Problems Are: Cough Shortness of Breath Goals to Promote Your Health * To prevent worsening of your condition and complications * To maintain your health at the optimal level Directions to Meet Your Goals Take your medications as prescribed Follow your dietary instruction Follow activity as directed Keep your appointments as scheduled Take your immunizations and boosters as scheduled If your symptoms worsen call your PCP, if no PCP go to Urgent Care Center or Emergency Room Smoking is Dangerous to Your Health. Avoid second hand smoke Call the 24-hour hour crisis hotline for domestic abuse at Alina Viera Apr 27, 2016 11:41
--- NOTE | 2016-04-27 11:45 | HHI.DS ---
Discharge Summary Admission Date Apr 24, 2016 at 17:57 Discharge Date: Apr 27, 2016 Admitting Diagnosis COPD/Hypoxia (1) COPD exacerbation (2) Hypoxia (3) Emphysema, unspecified (4) Hypertension, uncontrolled (5) Hypothyroid (6) Hypokalemia Brief History CBC/BMP: 04/24/16 1510 04/24/16 1510 Significant Findings Laboratory Tests Test 04/24/16 15:10 Monocytes (%) (Auto) 13.2 % (0.0-8.0) Monocytes # (Auto) 1.1 TH/MM3 (0-0.9) Potassium Level 3.4 MEQ/L (3.5-5.1) Estimat Glomerular Filtration 71 ML/MIN (>89) Rate B-Type Natriuretic Peptide 211 PG/ML (0-100) Albumin 3.3 GM/DL (3.4-5.0) Imaging Last Impressions Lower Extremity Ultrasound 04/25/16 0000 Signed Impressions: Service Date/Time: Monday, April 25, 2016 22:51 - CONCLUSION: Normal examination. Austin Ramirez MD Chest X-Ray 04/24/16 1503 Signed Impressions: Service Date/Time: Sunday, April 24, 2016 15:17 - CONCLUSION: No acute disease. oPwer Serrano MD Hospital Course This is an 85-year-old elderly female with significant past medical history of COPD not oxygen dependent, hypertension, hyperlipidemia, hypothyroid. Recently admitted in Feb with COPD exacerbation. Patient presented to the emergency room complaining of worsening shortness of breath, wheezing, coughing that is sometimes productive of garcia sputum. Denies any fever, no chills. No chest pain , no palpitations. Patient was apparently following up with . while there was referred to the emergency room she was noted to be draining from a small skin tear from the left lower extremity. Patient believes that she bumped her leg and associated acquire the small lesion. According to the patient, after she was discharge in February she had been doing fairly well. She had been increasing her intake she had had some weight loss prior to that. In the last couple days, she noted increased shortness of breath with minimal activity. She felt like she could not catch her breath. Indicates that she needs oxygen and knows that she needs to qualify. After her last admission, her walk test was stable and she did not require any oxygen. She is on chronic steroids. Administrative Secretary is Dr. Lu. Patient indicates that she doesn't like coming to the hospital and all she needs his oxygen. Patient was evaluated in the emergency room, laboratory workup completed was essentially unremarkable. Chest x-ray did not show any significant changes. ABG was within normal limits. BMP was remarkable for mild hypokalemia, potassium was 3.4. Troponin was negative. BNP was slightly elevated to 211. Patient was given IV steroids as well as duo nebs 3. After the treatment, patient was ambulated and she was able to walk 10 feet before becoming extremely short of breath and oxygen dropped to 88. Patient is resting comfortably, she is very pleasant. States that she is very independent and all she needs is her oxygen so she can go about her life. Patient is admitted for further evaluation and treatment. (1) COPD exacerbation (2) Hypoxia (3) Emphysema, unspecified (4) Hypertension, uncontrolled (5) Hypothyroid (6) Hypokalemia Assessment and Plan 85-year-old elderly female with history of COPD, presented to emergency room with complaints of progressive shortness of breath, worst with activity, cough with sputum, wheezing. Admitted with COPD exacerbation. -Continue Zithromax -Continue with scheduled DuoNeb's and when necessary -Continue PO steroids -Oxygen to keep sats greater than 90 -Continue Mucinex 1200 mg by mouth twice a day -Consult pulmonology, input appreciated. walk test done, results noted. -Hospice evaluated, was accepted. -Needs to have PFTs as OP with Dr. Lu, doesn't want to wait to have here. Hypertension, stable -Continue home meds Hypothyroid -continue home meds Hypokalemia-resolved monitor Lovenox for DVT prophylaxis Protonix for GI prophylaxis Stable for discharge, ambulating in room, SOB improved. Discharge home with hospice F/U Dr. Lu for PFTs F/U PCP Activity-as tolerated, instructed to pace activities Diet-regular D/W RN D/W Dr. Griffith D/W pt. D/W CM This patient was seen by myself and Dr. Griffith, this H&P is written on his behalf Pt Condition on Discharge: Guarded Discharge Disposition: Hospice/ Home Discharge Instructions DIET: Follow Instructions for: As Tolerated, No Restrictions Activities you can perform: Weight Bearing as Brandon Follow up Referrals: Pulmonology with Aly Lu MD Changed Medications: Prednisone (Prednisone) 20 Mg Tab 20 MG PO BID 20 MG ORALLY TWICE A DAY X 4 DAYS, THEN DECREASE TO 20 MG ORALLY X 4 DAYS, THEN DECREASE TO 10 MG ORALLY DAILY Inflammation #20 Ref 0 TAB (Changed from: DIRECTED; 11; 40 MG twice a day x 3 days, then 20 MG daily x 3 days, then 10 MG daily x 3 days) Continued Medications: Albuterol 18 GM Inh (Ventolin Hfa 18 GM Inh) 90 Mcg/Act Aer 2 PUFF INH Q4H PRN SHORTNESS OF BREATH #1 Ref 0 INHALER Amlodipine (Amlodipine) 5 Mg Tab 5 MG PO DAILY Blood Pressure Management #30 Ref 0 TAB Brimonidine Opth Drops (Brimonidine Opth Drops) 0.2% Soln 1 DROP EACH EYE TID Intraocular pressure #1 Ref 0 BOTTLE Desoximetasone Topical (Desoximetasone Topical) 0.05% Oint 1 APPLIC TOPICAL BID Dry Mouth Ref 0 GM Dorzolamide Opth Drops (Dorzolamide Opth Drops) 2% Soln 1 DROP RIGHT EYE BID Glaucoma #1 Ref 0 BOTTLE Guaifenesin ER 12 HR (Mucinex ER 12 HR) 600 Mg Bo 1200 MG PO BID cough #20 TAB Levothyroxine (Levothyroxine) 50 Mcg Tab 50 MCG PO DAILY Thyroid #30 Ref 0 TAB Discontinued Medications: Azithromycin (Zithromax) 250 Mg Tab 500 MG PO Q24H infection #4 TAB Alina Viera Apr 27, 2016 11:45
--- NOTE | 2016-04-27 11:45 | HHI.PR ---
Subjective Remarks ambulating in room mildly SOB but overall feels improved states that she understands she needs to take it easy at home and pace activities no fever no chills no cp very pleasant, has agreed to go home with hospice services. Doesn't want to be burden to family and wants to prevent coming to hospital Objective Objective Results - Vital Signs Date Time Temp Pulse Resp B/P Pulse Ox O2 Delivery O2 Flow Rate FiO2 04/27/16 08:09 96 Nasal Cannula 2.00 04/27/16 08:00 97.9 82 20 146/75 96 04/27/16 05:54 2.00 04/27/16 04:00 97.7 83 18 155/75 99 04/27/16 00:00 97.5 87 18 144/68 99 04/26/16 21:16 93 Room Air 04/26/16 20:26 95 04/26/16 20:00 97.7 102 18 154/83 93 04/26/16 16:00 97.6 93 21 147/73 93 04/26/16 12:45 116 04/26/16 12:00 97.8 97 21 150/75 96 I/O 04/26/16 04/26/16 04/26/16 04/27/16 04/27/16 04/27/16 07:00 15:00 23:00 07:00 15:00 23:00 Intake Total 340 ml 482 ml 240 ml Balance 340 ml 482 ml 240 ml Intake Oral 340 ml 480 ml 240 ml IV Total 2 ml # Voids 1 3 2 1 # Bowel Movements 1 0 Result Diagram: 04/24/16 1510 04/24/16 1510 Imaging Last Impressions Chest X-Ray 04/24/16 1503 Signed Impressions: Service Date/Time: Sunday, April 24, 2016 15:17 - CONCLUSION: No acute disease. Power Serrano MD ROS General: No: Fatigue, Weakness HEENT: No: Sore Throat, Dysphagia Cardiac: No: Chest Pain, Edema, Palpitations Pulmonary: Cough, SOB, Wheezing GI: No: Abdominal Pain, BM, Diarrhea, N/V /ANALYSIS INTERN: No: Dysuria, Urgency Neuro/MS: No: Lightheaded, Confusion Psych: No: Anxiety, Depression Skin: No: Itching, Rash Physical Exam Physical Exam GENERAL: This is a thin built, elderly female. SKIN: Skin fragile, bruises easily. HEAD: Atraumatic. Normocephalic. No temporal or scalp tenderness. EYES: Pupils equal round and reactive. Extraocular motions intact. No scleral icterus. No injection or drainage. ENT: Nose without bleeding, purulent drainage or septal hematoma. Throat without erythema, tonsillar hypertrophy or exudate. Uvula midline. Airway patent. NECK: Trachea midline. No JVD or lymphadenopathy. Supple, nontender, no meningeal signs. CARDIOVASCULAR: Regular rate and rhythm without murmurs, gallops, or rubs. RESPIRATORY: Diminished, faint expiratory wheezing, cough nonproductive. GASTROINTESTINAL: Abdomen soft, non-tender, nondistended. No hepato-splenomegaly , or palpable masses. No guarding. MUSCULOSKELETAL: No joint abnormality noted, active range of motion. Bilateral lower extremities with trace pretibial edema, left greater than right. Pedal pulses 2+ bilaterally. Skin tear noted to left lower extremity, oozing clear drainage. NEUROLOGICAL: Awake and alert. Cranial nerves II through XII intact. Motor and sensory grossly within normal limits. Five out of 5 muscle strength in all muscle groups. Normal speech. Urinary Catheter: No Vascular Central Line Catheter: No A/P Diagnosis: (1) COPD exacerbation (2) Hypoxia (3) Emphysema, unspecified (4) Hypertension, uncontrolled (5) Hypothyroid (6) Hypokalemia Assessment and Plan 85-year-old elderly female with history of COPD, presented to emergency room with complaints of progressive shortness of breath, worst with activity, cough with sputum, wheezing. Admitted with COPD exacerbation. -Continue Zithromax -Continue with scheduled DuoNeb's and when necessary -Continue PO steroids -Oxygen to keep sats greater than 90 -Continue Mucinex 1200 mg by mouth twice a day -Consult pulmonology, input appreciated. walk test done, results noted. -Hospice evaluated, was accepted. -Needs to have PFTs as OP with Dr. Lu, doesn't want to wait to have here. Hypertension, stable -Continue home meds Hypothyroid -continue home meds Hypokalemia-resolved monitor Lovenox for DVT prophylaxis Protonix for GI prophylaxis Stable for discharge, ambulating in room, SOB improved. Discharge home with hospice F/U Dr. Lu for PFTs F/U PCP Activity-as tolerated, instructed to pace activities Diet-regular D/W RN D/W Dr. Griffith D/W pt. D/W CM This patient was seen by myself and Dr. Griffith, this H&P is written on his behalf ( Problem Qualifiers (1) Hypothyroid: Qualified Code: E03.9 - Hypothyroidism, unspecified type Alina Viera Apr 27, 2016 11:45
--- NOTE | 2016-04-30 09:06 | RSPPFT ---
DATE OF PROCEDURE: 04/27/16 COMMENTS: VOLUMES DYNAMIC: FVC mildly reduced; FEV1 severely reduced. FLOWS: FEV1% and FEF 25-75 severely reduced. IMPRESSION: Severe obstructive ventilatory defect with some improvement post-bronchodilator.
== END 2016-04-27 12:54 | disposition hospice, home (50) ==
LOC: NEPE 14:41 → NEDA 17:57 → INTOOBSV 17:57 → N04B 20:48
PROVIDERS: ADMIT Specialist; ATTEND Specialist
DX: R09.02 Hypoxemia (principal); J44.1 Chronic obstructive pulmonary disease with (acute) exacerbation; I10 Essential (primary) hypertension; E03.9 Hypothyroidism, unspecified; E87.6 Hypokalemia
CPT/HCPCS: 36600; 71010; 80053; 82550; 82805; 83735; 83880; 84484; 85025; 85610; 85730; 93005; 93971; 94060; 94620; 94640; 94664; 96374; 96375; 99284; G0378; J0456; J1650; J2930; J3480; J7050; J7512